=== PATIENT | male | born 1945 | race Caucasian/White ===

== ENCOUNTER 2019-07-03 18:06 | Emergency (ER) | payer OTHER ==
[~2019-07-03] VITALS: Ht 190.5 cm; Wt 81.6 kg
[2019-07-03 18:10] VITALS: BP_SYST 153
[2019-07-03] MEDS: BACITRACIN/POLYMYXIN B SULFATE 30 GM TOPICAL OINT. TP SCH ×2 (18:38→18:39)
[2019-07-03] MEDS ORDERED: BACITRACIN 1 GM OINT TP ONE (18:54)
[2019-07-03 19:10] VITALS: BP_SYST 153
== END 2019-07-03 19:10 | disposition home or self-care (01) ==
LOC: SED 18:06
DX: S00.03XA Contusion of scalp, initial encounter (principal); S40.012A Contusion of left shoulder, initial encounter; S60.512A Abrasion of left hand, initial encounter; G20 Parkinson's disease; E11.9 Type 2 diabetes mellitus without complications; W18.39XA Other fall on same level, initial encounter; Y93.89 Activity, other specified; Y92.89 Other specified places as the place of occurrence of the external cause; Y99.8 Other external cause status
CPT/HCPCS: 70450-TC; 72192-TC; 73030; 99285